=== PATIENT | male | born 1975 | race Caucasian/White ===

== ENCOUNTER 2018-08-24 18:35 | Emergency (ER) | payer SELFPAY ==
[~2018-08-24] VITALS: Ht 160 cm; Wt 81.6 kg
[2018-08-24 18:35] VITALS: BP 146/91
--- NOTE | 2018-08-24 18:35 | NUR ---
PATIENT BIB [facility] TO ER CHAIR [facility]
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
[2018-08-24 19:05] VITALS: BP 137/95
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
== END 2018-08-24 19:05 ==
LOC: MED 18:35
DX: Z04.1 Encounter for examination and observation following transport accident (principal); Z02.89 Encounter for other administrative examinations; V89.2XXA Person injured in unspecified motor-vehicle accident, traffic, initial encounter; Y93.89 Activity, other specified; Y92.89 Other specified places as the place of occurrence of the external cause; Y99.8 Other external cause status
CPT/HCPCS: 99283